=== PATIENT | male | born 2000 | race African-American/Black ===

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

== ENCOUNTER 2022-12-19 13:56 | Inpatient (IN) | payer OTHER ==
[~2022-12-19] VITALS: Ht 185.4 cm; Wt 84.9 kg
[2022-12-19] MEDS ORDERED: IBUPROFEN 600MG TAB PO ONE (14:25)
[2022-12-19] MEDS ORDERED: NS 1,000 ML IV ONE ×2 (14:25→18:00)
[2022-12-19] MEDS ORDERED: ONDANSETRON 4MG 2ML VIAL IV ONE (14:25)
[2022-12-19 14:55] LABS: BASO # 0.1 10^3/uL (0.0-0.2); BASO % 0.4 % (0.0-1.0); EOS % 0.1 % (0.0-3.0); HEMATOCRIT 44.9 % (42.0-52.0); HEMOGLOBIN 14.1 g/dl (13.5-17.5); LYMPH % 5.3 % (24.0-44.0); MEAN CORPUSCULAR HEMOGLOBIN 26.7 pg (27.0-33.0); MEAN CORPUSCULAR HGB CONC 31.4 g/dl (32.0-36.5); MONO # 1.1 10^3/uL (0.0-0.8); MONO % 6.1 % (2.0-8.0); NEUTROPHILS # 16.3 10^3/uL (1.5-8.5); NEUTROPHILS % 87.5 % (36.0-66.0); PLATELET COUNT, AUTOMATED 244 10^3/uL (150-450); RED BLOOD COUNT 5.28 10^6/uL (4.30-6.10); WHITE BLOOD COUNT 18.6 10^3/uL (4.0-10.0)
[2022-12-19 15:21] LABS: LIPASE 23 U/L (12-53)
[2022-12-19 15:23] LABS: ALBUMIN 4.2 G/DL (3.2-5.2); ALKALINE PHOSPHATASE 106 U/L (46-116); ALT/SGPT 18 U/L (7.0-40); AST/SGOT 20 U/L (<34); BILIRUBIN,DIRECT 0.4 MG/DL (<0.4); BILIRUBIN,TOTAL 1.1 MG/DL (0.3-1.2); BLOOD UREA NITROGEN 12 MG/DL (9-23); CALCIUM LEVEL 9.5 MG/DL (8.5-10.1); CARBON DIOXIDE LEVEL 29 MMOL/L (20-31); CHLORIDE LEVEL 98 MMOL/L (98-107); CREATININE FOR GFR 1.18 MG/DL (0.70-1.30); GLOMERULAR FILTRATION RATE > 60.0 (>60); GLUCOSE, FASTING 124 MG/DL (60-100); POTASSIUM SERUM 4.3 MMOL/L (3.5-5.1); SODIUM LEVEL 136 MMOL/L (136-145); TOTAL PROTEIN 8.3 G/DL (5.7-8.2)
[2022-12-19 15:29] LABS: MONO SCRN NEGATIVE (NEGATIVE)
[2022-12-19] MEDS ORDERED: ISOVUE-370 76% 100ML VIAL As Ordered ONE (15:59)
[2022-12-19 17:09] VITALS: O2SAT 86
[2022-12-19] MEDS ORDERED: cefTRIAXone SOD 2 GM in D5W MINI-BAG PLUS 50 ML IV ONE (17:15)
[2022-12-19] MEDS ORDERED: ACETAMINOPHEN TAB 650MG DOSE (2X325MG) PO PRN (17:45)
[2022-12-19] MEDS ORDERED: LEVALBUTEROL 1.25MG 0.5ML CONCENTRATE NEB INH PRN (17:45)
[2022-12-19] MEDS ORDERED: guaiFENesin DM LIQ 10ML UD PO PRN (17:50)
[2022-12-19] MEDS ORDERED: CHLORASEPTIC SPRAY MT PRN (17:55)
[2022-12-19] MEDS ORDERED: SENOKOT S TAB PO PRN (17:55)
[2022-12-19] MEDS ORDERED: MOM 30ML SUSPENSION UDC PO PRN (17:55)
[2022-12-19] MEDS ORDERED: NS 1,000 ML IV SCH (18:00)
[2022-12-19] MEDS ORDERED: HOME MED LIST COMPLETE! XX SCH (18:15)
[2022-12-19 18:27] LABS: ERYTHROCYTE SEDIMENTATION RATE 96 mm/hr (0-15)
[2022-12-19] MEDS ORDERED: PERCOCET 5MG/325MG TAB PO PRN (18:55)
[2022-12-19 19:00] VITALS: BP 130/80
[2022-12-19] MEDS ORDERED: VANCOMYCIN HCL 1,000 MG, VIAL MATE ADAPTER 1 EACH in NS 250 ML IV ONE (19:00)
[2022-12-19 19:11] VITALS: BP 140/79
[2022-12-19] MEDS ORDERED: LEVALBUTEROL 1.25MG 0.5ML CONCENTRATE NEB NEB ONE (19:15)
[2022-12-19] MEDS ORDERED: PERCOCET 5MG/325MG TAB PO ONE (19:15)
[2022-12-19] MEDS: KETOROLAC 30 MG/ML 1ML VIAL IV SCH (20:50)
[2022-12-19] MEDS: NS 1,000 ML IV SCH (20:51)
[2022-12-19] MEDS ORDERED: VANCOMYCIN HCL 1,000 MG, VIAL MATE ADAPTER 1 EACH in NS 250 ML IV SCH (21:00)
[2022-12-20] MEDS: KETOROLAC 30 MG/ML 1ML VIAL IV SCH ×4 (02:00→20:57)
[2022-12-20] MEDS: NS 1,000 ML IV SCH (05:22)
[2022-12-20 06:00] VITALS: BP 138/66
[2022-12-20 06:11] LABS: BASO # 0.1 10^3/uL (0.0-0.2); BASO % 0.4 % (0.0-1.0); EOS # 0.1 10^3/uL (0.0-0.5); EOS % 0.5 % (0.0-3.0); HEMATOCRIT 39.7 % (42.0-52.0); HEMOGLOBIN 12.3 g/dl (13.5-17.5); LYMPH # 1.5 10^3/uL (1.5-5.0); LYMPH % 8.2 % (24.0-44.0); MEAN CORPUSCULAR HEMOGLOBIN 26.6 pg (27.0-33.0); MEAN CORPUSCULAR VOLUME 85.7 fl (80.0-96.0); MONO % 9.7 % (2.0-8.0); NEUTROPHILS # 14.8 10^3/uL (1.5-8.5); NEUTROPHILS % 80.5 % (36.0-66.0); PLATELET COUNT, AUTOMATED 193 10^3/uL (150-450); RED BLOOD COUNT 4.63 10^6/uL (4.30-6.10); WHITE BLOOD COUNT 18.4 10^3/uL (4.0-10.0)
[2022-12-20 06:32] LABS: BLOOD UREA NITROGEN 10 MG/DL (9-23); CARBON DIOXIDE LEVEL 27 MMOL/L (20-31); CHLORIDE LEVEL 101 MMOL/L (98-107); CREATININE FOR GFR 1.11 MG/DL (0.70-1.30); GLOMERULAR FILTRATION RATE > 60.0 (>60); GLUCOSE, FASTING 108 MG/DL (60-100); POTASSIUM SERUM 4.1 MMOL/L (3.5-5.1); SODIUM LEVEL 136 MMOL/L (136-145)
[2022-12-20 07:41] LABS: MONO # 1.8 10^3/uL (0.0-0.8)
[2022-12-20] MEDS: cefTRIAXone SOD 2 GM in D5W MINI-BAG PLUS 50 ML IV SCH (08:22)
[2022-12-20] MEDS: metroNIDAZOLE 500 MG in IV 1 EA IV SCH ×2 (10:42→17:36)
[2022-12-20] MEDS ORDERED: CETIRIZINE (ZyrTEC) 10 MG TAB PO ONE (11:50)
[2022-12-20] MEDS: FLUTICASONE PROP 0.05% NASAL SPRAY 16 GM (FLONASE) NARES SCH (13:33)
[2022-12-20] MEDS: CEPACOL LOZENGE PO PRN ×2 (13:41→21:14)
[2022-12-20 15:00] VITALS: BP 139/78
[2022-12-20 21:43] VITALS: BP 138/59
[2022-12-21] MEDS: metroNIDAZOLE 500 MG in IV 1 EA IV SCH ×3 (02:35→18:01)
[2022-12-21] MEDS: KETOROLAC 30 MG/ML 1ML VIAL IV SCH ×2 (02:37→21:21)
[2022-12-21 05:31] VITALS: BP 127/60
[2022-12-21 06:09] LABS: BASO # 0.1 10^3/uL (0.0-0.2); BASO % 0.4 % (0.0-1.0); EOS # 0.3 10^3/uL (0.0-0.5); EOS % 1.6 % (0.0-3.0); HEMATOCRIT 39.6 % (42.0-52.0); HEMOGLOBIN 12.3 g/dl (13.5-17.5); LYMPH # 2.2 10^3/uL (1.5-5.0); LYMPH % 13.2 % (24.0-44.0); MEAN CORPUSCULAR HGB CONC 31.1 g/dl (32.0-36.5); MONO % 9.6 % (2.0-8.0); NEUTROPHILS # 12.5 10^3/uL (1.5-8.5); NEUTROPHILS % 74.5 % (36.0-66.0); PLATELET COUNT, AUTOMATED 189 10^3/uL (150-450); RED BLOOD COUNT 4.55 10^6/uL (4.30-6.10); WHITE BLOOD COUNT 16.8 10^3/uL (4.0-10.0)
[2022-12-21 06:40] LABS: MONO # 1.6 10^3/uL (0.0-0.8)
[2022-12-21 06:41] LABS: BLOOD UREA NITROGEN 11 MG/DL (9-23); CALCIUM LEVEL 8.3 MG/DL (8.5-10.1); CARBON DIOXIDE LEVEL 31 MMOL/L (20-31); CHLORIDE LEVEL 104 MMOL/L (98-107); CREATININE FOR GFR 0.94 MG/DL (0.70-1.30); GLOMERULAR FILTRATION RATE > 60.0 (>60); GLUCOSE, FASTING 103 MG/DL (60-100); POTASSIUM SERUM 4.4 MMOL/L (3.5-5.1); SODIUM LEVEL 141 MMOL/L (136-145)
[2022-12-21 08:00] VITALS: BP 123/79
[2022-12-21] MEDS ORDERED: KETOROLAC 30 MG/ML 1ML VIAL IV ONE (08:25)
[2022-12-21] MEDS: FLUTICASONE PROP 0.05% NASAL SPRAY 16 GM (FLONASE) NARES SCH ×3 (09:00→10:21)
[2022-12-21] MEDS: CETIRIZINE (ZyrTEC) 10 MG TAB PO SCH (10:10)
[2022-12-21] MEDS: cefTRIAXone SOD 2 GM in D5W MINI-BAG PLUS 50 ML IV SCH (10:10)
[2022-12-21] MEDS: PERCOCET 5MG/325MG TAB PO SCH ×2 (12:30→18:02)
[2022-12-21 14:00] VITALS: BP 128/68
[2022-12-21 14:08] LABS: ANTINUCLEAR ANTIBODIES DIRECT Negative (Negative)
[2022-12-21 21:04] VITALS: BP 121/75
[2022-12-21] MEDS: CEPACOL LOZENGE PO PRN (23:10)
[2022-12-22] MEDS: metroNIDAZOLE 500 MG in IV 1 EA IV SCH ×3 (01:04→17:25)
[2022-12-22 05:36] VITALS: BP 126/72
[2022-12-22 06:30] LABS: BASO % 0.4 % (0.0-1.0); EOS # 0.3 10^3/uL (0.0-0.5); EOS % 3.1 % (0.0-3.0); HEMATOCRIT 39.2 % (42.0-52.0); HEMOGLOBIN 12.1 g/dl (13.5-17.5); LYMPH # 1.6 10^3/uL (1.5-5.0); LYMPH % 15.6 % (24.0-44.0); MEAN CORPUSCULAR HEMOGLOBIN 26.7 pg (27.0-33.0); MEAN CORPUSCULAR HGB CONC 30.9 g/dl (32.0-36.5); MEAN CORPUSCULAR VOLUME 86.3 fl (80.0-96.0); MONO % 9.2 % (2.0-8.0); NEUTROPHILS # 7.5 10^3/uL (1.5-8.5); NEUTROPHILS % 71.1 % (36.0-66.0); PLATELET COUNT, AUTOMATED 199 10^3/uL (150-450); RED BLOOD COUNT 4.54 10^6/uL (4.30-6.10); WHITE BLOOD COUNT 10.5 10^3/uL (4.0-10.0)
[2022-12-22 06:59] LABS: BLOOD UREA NITROGEN 12 MG/DL (9-23); CALCIUM LEVEL 8.3 MG/DL (8.5-10.1); CARBON DIOXIDE LEVEL 29 MMOL/L (20-31); CHLORIDE LEVEL 106 MMOL/L (98-107); CREATININE FOR GFR 0.98 MG/DL (0.70-1.30); GLOMERULAR FILTRATION RATE > 60.0 (>60); GLUCOSE, FASTING 88 MG/DL (60-100); POTASSIUM SERUM 4.5 MMOL/L (3.5-5.1); SODIUM LEVEL 142 MMOL/L (136-145)
[2022-12-22] MEDS: CETIRIZINE (ZyrTEC) 10 MG TAB PO SCH (08:43)
[2022-12-22] MEDS: PERCOCET 5MG/325MG TAB PO SCH (08:43)
[2022-12-22] MEDS: cefTRIAXone SOD 2 GM in D5W MINI-BAG PLUS 50 ML IV SCH (08:43)
[2022-12-22] MEDS ORDERED: PERCOCET 5MG/325MG TAB PO PRN (10:20)
[2022-12-22 14:00] VITALS: BP 130/75
[2022-12-22 20:14] VITALS: BP 131/80
[2022-12-22] MEDS: KETOROLAC 30 MG/ML 1ML VIAL IV SCH (22:15)
[2022-12-23] MEDS: metroNIDAZOLE 500 MG in IV 1 EA IV SCH ×2 (02:15→10:24)
[2022-12-23 05:37] VITALS: BP 135/71
[2022-12-23 06:46] LABS: BASO # 0.1 10^3/uL (0.0-0.2); BASO % 0.7 % (0.0-1.0); EOS # 0.4 10^3/uL (0.0-0.5); EOS % 3.2 % (0.0-3.0); HEMOGLOBIN 11.7 g/dl (13.5-17.5); LYMPH # 2.2 10^3/uL (1.5-5.0); LYMPH % 19.9 % (24.0-44.0); MEAN CORPUSCULAR HEMOGLOBIN 26.7 pg (27.0-33.0); MEAN CORPUSCULAR HGB CONC 31.6 g/dl (32.0-36.5); MEAN CORPUSCULAR VOLUME 84.5 fl (80.0-96.0); MONO # 1.1 10^3/uL (0.0-0.8); MONO % 10.1 % (2.0-8.0); NEUTROPHILS # 7.3 10^3/uL (1.5-8.5); NEUTROPHILS % 65.4 % (36.0-66.0); PLATELET COUNT, AUTOMATED 229 10^3/uL (150-450); RED BLOOD COUNT 4.38 10^6/uL (4.30-6.10); WHITE BLOOD COUNT 11.2 10^3/uL (4.0-10.0)
[2022-12-23 07:19] LABS: BLOOD UREA NITROGEN 12 MG/DL (9-23); CALCIUM LEVEL 8.5 MG/DL (8.5-10.1); CARBON DIOXIDE LEVEL 31 MMOL/L (20-31); CHLORIDE LEVEL 104 MMOL/L (98-107); CREATININE FOR GFR 0.94 MG/DL (0.70-1.30); GLOMERULAR FILTRATION RATE > 60.0 (>60); GLUCOSE, FASTING 94 MG/DL (60-100); POTASSIUM SERUM 4.1 MMOL/L (3.5-5.1); SODIUM LEVEL 141 MMOL/L (136-145)
[2022-12-23] MEDS: cefTRIAXone SOD 2 GM in D5W MINI-BAG PLUS 50 ML IV SCH (09:16)
[2022-12-23] MEDS: FLUTICASONE PROP 0.05% NASAL SPRAY 16 GM (FLONASE) NARES SCH (09:16)
[2022-12-23] MEDS: CETIRIZINE (ZyrTEC) 10 MG TAB PO SCH (09:16)
[2022-12-23] MEDS ORDERED: METR-265 PO (11:36)
[2022-12-23] MEDS ORDERED: CEPH500C PO (11:36)
== END 2022-12-23 12:51 | disposition home or self-care (01) | DRG 603 ==
LOC: M ED 13:56 → M ED INP 17:31 → ENRESERV 18:00 → M MSPAV 18:57
PROVIDERS: ADMIT General Practice; ATTEND Family Medicine
DX: L02.31 Cutaneous abscess of buttock (principal); R09.02 Hypoxemia; J02.9 Acute pharyngitis, unspecified; F17.290 Nicotine dependence, other tobacco product, uncomplicated; K59.00 Constipation, unspecified